=== PATIENT | male | born 1980 | race Caucasian/White ===

== ENCOUNTER 2021-01-06 16:27 | Emergency (ER) | payer OTHER ==
[~2021-01-06] VITALS: Ht 177.8 cm; Wt 150.0 kg
[2021-01-06] MEDS ORDERED: LEVO100T5 PO (16:33)
[2021-01-06] MEDS ORDERED: LISI2.5T2 PO (16:33)
--- NOTE | 2021-01-06 18:07 | REP ---
INDICATION: concern for hematoma. COMPARISON: None. TECHNIQUE: Real-time sonographic evaluation of right antecubital fossa and anterior lateral forearm performed in the region of pain. FINDINGS: No cystic or solid nodule series. No fluid collection is seen. IMPRESSION: No sonographic abnormality in the region of the right antecubital fossa or anterolateral forearm. <Electronically signed by Sonido Roberts > 01/06/21 [id number]
--- NOTE | 2021-01-06 19:04 | REP ---
INDICATION: injury COMPARISON: None. TECHNIQUE: There are two views, AP and lateral projections. FINDINGS: There is no fracture or dislocation. Mineralization and joint spaces are normal. There are no calcifications or foreign bodies. IMPRESSION: Negative right forearm. . <Electronically signed by Sonido Love > 01/06/21 [id number]
--- NOTE | 2021-01-06 19:05 | REP ---
INDICATION: injury COMPARISON: None. TECHNIQUE: There are four views. FINDINGS: There is no fracture or dislocation. Mineralization and joint spaces are normal. There are no calcifications or foreign bodies. There is no hemarthrosis/effusion. IMPRESSION: Negative right elbow. . <Electronically signed by Sonido Love > 01/06/21 [id number]
[2021-01-06 20:36] VITALS: BP 144/88
== END 2021-01-06 20:38 | disposition home or self-care (01) ==
LOC: M ED 16:27
DX: M79.601 Pain in right arm (principal); X50.0XXA Overexertion from strenuous movement or load, initial encounter; Y92.512 Supermarket, store or market as the place of occurrence of the external cause; Y93.9 Activity, unspecified; Y99.0 Civilian activity done for income or pay; I10 Essential (primary) hypertension; E03.9 Hypothyroidism, unspecified; Z79.899 Other long term (current) drug therapy; Z79.890 Hormone replacement therapy

== ENCOUNTER → 2022-11-17 | Outpatient (CLI) | payer OTHER ==
[~2022-11-17] MED LIST: LEVO100T5 PO; LISI2.5T9 PO
== END ==
LOC: M SLEEP 20:00
PROVIDERS: ATTEND Physician Assistant Medical
DX: G47.33 Obstructive sleep apnea (adult) (pediatric) (principal)